=== PATIENT | male | born 1950 | race Caucasian/White ===

== ENCOUNTER 2016-12-07 15:27 | Emergency (ER) | payer OTHER ==
[~2016-12-07] VITALS: Ht 182.9 cm; Wt 90.0 kg
[~2016-12-07 15:27] MED LIST: ENAL5 PO; TRAM50 PO; VASO10TA8 PO
[2016-12-07 15:29] VITALS: BP 176/109; PULSE 112; RESP 14; TEMP 98.1; O2SAT 94
[2016-12-07] MEDS ORDERED: ACETAMINOPHEN 325 MG TAB PO ONE (16:30)
--- NOTE | 2016-12-07 16:38 | PD ---
HPI Chief Complaint: Fall Time Seen by Provider: 16:33 Travel History International Travel<30 days: No Contact w/Intl Traveler<30days: No Traveled to known affect area: No History of Present Illness HPI Patient is a 66-year-old male presented to emergency department for evaluation after fall at approximately 11:30 this morning. Patient states that he was walking and tripped on a pothole, hitting his face on the concrete. He currently reports that he lost consciousness for a few seconds. He presents complaining of a headache, stating his head hurts all over and is throbbing. He reports a backache in his upper back, left anterior chest wall pain, left hand pain. He reports his pain is a 7 out of 10. He is not up-to-date with his tetanus vaccination. Patient denies use of blood thinners or aspirin. He reports hypertension as his only past medical history with the exception of bilateral hip replacements. PFSH Past Medical History Arthritis: Yes Autoimmune Disease: No Blood Disorders: No Heart Rhythm Problems: No Cancer: No High Cholesterol: No Congestive Heart Failure: No Diminished Hearing: No Endocrine: No Glaucoma: No Genitourinary: No Headaches: Yes Hypertension: Yes Implanted Vascular Access Dvce: Yes Musculoskeletal: No Neurologic: Yes Psychiatric: No Reproductive: No Respiratory: No Myocardial Infarction: No PNEUMOCCOCAL Vaccine (Year): 2 Past Surgical History AICD: No Body Medical Devices: EYE IMPLant Eye Surgery: Yes ("LASER" BILATERAL CATARACTS) Genitourinary Surgery: No Joint Replacement: Yes (bilateral HIP) Pacemaker: No Other Surgery: Yes Social History Alcohol Use: Yes (WINE OCCAS) Tobacco Use: No Substance Use: No Allergies-Medications (Allergen,Severity, Reaction): Coded Allergies: No Known Allergies (Verified , 12/07/16) Reported Meds & Prescriptions Reported Meds & Active Scripts Active Ultram (Tramadol HCl) 50 Mg Tab 1 Tab PO Q6 PRN FOR PAIN Reported Vasotec 5 Mg Tab (Enalapril Maleate) 5 Mg Tab 5 Mg PO DAILY Vasotec (Enalapril Maleate) 10 Mg Tab 10 Mg PO HS Review of Systems Except as stated in HPI: all other systems reviewed are Neg Eyes: No: Visual changes HENT: Positive: Headaches, No: Lightheadedness, Neck Stiffness, Neck Pain Cardiovascular: Positive: Chest Pain or Discomfort Respiratory: No: Shortness of Breath Gastrointestinal: No: Nausea, Vomiting, Diarrhea, Abdominal Pain Musculoskeletal: Positive: Myalgias Neurologic: Positive: Headache, No: Weakness, Dizziness, Syncope, Change in Mentation Physical Exam Narrative GENERAL: Well-developed, well-nourished, alert male. SKIN: Warm and dry. HEAD: Contusion to left forehead. Normocephalic. EYES: Pupils equal and round. No scleral icterus. No injection or drainage. ENT: No nasal bleeding or discharge. Mucous membranes pink and moist. NECK: Trachea midline. No JVD. CARDIOVASCULAR: Regular rate and rhythm. No murmur appreciated. RESPIRATORY: No accessory muscle use. Clear to auscultation. Breath sounds equal bilaterally. GASTROINTESTINAL: Abdomen soft, non-tender, nondistended. Hepatic and splenic margins not palpable. MUSCULOSKELETAL: No obvious deformities. No clubbing. No cyanosis. No edema. Tenderness to palpation on left anterior chest wall and right upper back just medial to the scapula. Left hand with contusion to the third MCP. Positive radial pulse, brisk less than 3 second capillary refill. NEUROLOGICAL: Awake and alert. Motor grossly within normal limits. Slurred speech. Left facial droop. PSYCHIATRIC: Appropriate mood and affect; insight and judgment normal. Data Data Last Documented VS Vital Signs Date Time Temp Pulse Resp B/P Pulse Ox O2 Delivery O2 Flow Rate FiO2 12/07/16 16:25 16 12/07/16 15:29 98.1 112 176/109 94 Room Air Orders Prothrombin Time / Inr (Pt) (12/07/16 16:16) Act Partial Throm Time (Ptt) (12/07/16 16:16) Complete Blood Count With Diff (12/07/16 16:16) Comprehensive Metabolic Panel (12/07/16 16:16) Ct Brain W/O Iv Contrast(Rout) (12/07/16 16:16) Chest, Pa & Lat (12/07/16 ) Hand, Complete ([id number]) (12/07/16 ) Ct Facial Bones W/O Iv Cont (12/07/16 ) Acetaminophen (Tylenol) (12/07/16 16:30) Labs Laboratory Tests Test 12/07/16 16:25 White Blood Count 10.8 TH/MM3 Red Blood Count 5.60 MIL/MM3 Hemoglobin 17.3 GM/DL Hematocrit 50.0 % Mean Corpuscular Volume 89.3 FL Mean Corpuscular Hemoglobin 30.9 PG Mean Corpuscular Hemoglobin 34.6 % Concent Red Cell Distribution Width 14.8 % Platelet Count 202 TH/MM3 Mean Platelet Volume 8.4 FL Neutrophils (%) (Auto) 85.4 % Lymphocytes (%) (Auto) 8.0 % Monocytes (%) (Auto) 5.9 % Eosinophils (%) (Auto) 0.2 % Basophils (%) (Auto) 0.5 % Neutrophils # (Auto) 9.3 TH/MM3 Lymphocytes # (Auto) 0.9 TH/MM3 Monocytes # (Auto) 0.6 TH/MM3 Eosinophils # (Auto) 0.0 TH/MM3 Basophils # (Auto) 0.1 TH/MM3 CBC Comment DIFF FINAL Differential Comment Prothrombin Time 11.1 SEC Prothromb Time International 1.0 RATIO Ratio Activated Partial 25.3 SEC Thromboplast Time Sodium Level 137 MEQ/L Potassium Level 4.2 MEQ/L Chloride Level 106 MEQ/L Carbon Dioxide Level 25.0 MEQ/L Anion Gap 6 MEQ/L Blood Urea Nitrogen 12 MG/DL Creatinine 1.01 MG/DL Estimat Glomerular Filtration 74 ML/MIN Rate Random Glucose 118 MG/DL Calcium Level 9.4 MG/DL Total Bilirubin 0.7 MG/DL Aspartate Amino Transf 26 U/L (AST/SGOT) Alanine Aminotransferase 36 U/L (ALT/SGPT) Alkaline Phosphatase 64 U/L Total Protein 7.6 GM/DL Albumin 3.8 GM/DL [facility] Medical Decision Making Medical Screen Exam Complete: Yes Emergency Medical Condition: Yes Interpretation(s) Laboratory Tests Test 12/07/16 16:25 White Blood Count 10.8 TH/MM3 Red Blood Count 5.60 MIL/MM3 Hemoglobin 17.3 GM/DL Hematocrit 50.0 % Mean Corpuscular Volume 89.3 FL Mean Corpuscular Hemoglobin 30.9 PG Mean Corpuscular Hemoglobin 34.6 % Concent Red Cell Distribution Width 14.8 % Platelet Count 202 TH/MM3 Mean Platelet Volume 8.4 FL Neutrophils (%) (Auto) 85.4 % Lymphocytes (%) (Auto) 8.0 % Monocytes (%) (Auto) 5.9 % Eosinophils (%) (Auto) 0.2 % Basophils (%) (Auto) 0.5 % Neutrophils # (Auto) 9.3 TH/MM3 Lymphocytes # (Auto) 0.9 TH/MM3 Monocytes # (Auto) 0.6 TH/MM3 Eosinophils # (Auto) 0.0 TH/MM3 Basophils # (Auto) 0.1 TH/MM3 CBC Comment DIFF FINAL Differential Comment Prothrombin Time 11.1 SEC Prothromb Time International 1.0 RATIO Ratio Activated Partial 25.3 SEC Thromboplast Time Sodium Level 137 MEQ/L Potassium Level 4.2 MEQ/L Chloride Level 106 MEQ/L Carbon Dioxide Level 25.0 MEQ/L Anion Gap 6 MEQ/L Blood Urea Nitrogen 12 MG/DL Creatinine 1.01 MG/DL Estimat Glomerular Filtration 74 ML/MIN Rate Random Glucose 118 MG/DL Calcium Level 9.4 MG/DL Total Bilirubin 0.7 MG/DL Aspartate Amino Transf 26 U/L (AST/SGOT) Alanine Aminotransferase 36 U/L (ALT/SGPT) Alkaline Phosphatase 64 U/L Total Protein 7.6 GM/DL Albumin 3.8 GM/DL Last Impressions Head CT 12/07/16 1616 Signed Impressions: Service Date/Time: Wednesday, December 07, 2016 16:46 - CONCLUSION: Negative for an acute traumatic injury. Robert Banda MD FACR Maxillofacial CT 12/07/16 0000 Signed Impressions: Service Date/Time: Wednesday, December 07, 2016 16:46 - CONCLUSION: Subtle nondisplaced fractures involving the lateral left maxilla. There is an air- fluid level in the left maxillary sinus. Elie Castellon MD Hand X-Ray 12/07/16 0000 Signed Impressions: Service Date/Time: Wednesday, December 07, 2016 16:55 - CONCLUSION: Soft tissue swelling over the dorsum of the hand with no acute fracture or malalignment. Elie Castellon MD Chest X-Ray 12/07/16 0000 Signed Impressions: Service Date/Time: Wednesday, December 07, 2016 16:52 - CONCLUSION: 1. No visualized rib fracture or pneumothorax. 2. Streaky opacity at the lung bases most consistent with atelectasis and or scarring. Elie Castellon MD Vital Signs Date Time Temp Pulse Resp B/P Pulse Ox O2 Delivery O2 Flow Rate FiO2 12/07/16 15:29 98.1 112 14 176/109 94 Room Air Differential Diagnosis Hemorrhage versus contusion versus concussion versus fracture versus sprain versus strain versus other Narrative Course Patient is a 66-year-old male presenting to the emergency department for evaluation of a contusion to his left forehead after he sustained a mechanical fall at approximately 11:30 this morning. On physical examination patient has slightly slurred speech as well as left facial drooping. CT scan, labs, imaging ordered and pending. CT scan of the brain is negative, imaging of the left hand was negative, chest x -ray was negative for acute fractures or pneumothorax. It does show scarring at the bases. CT of the facial bones shows maxillary fracture with air fluid level. Patient transferred to a medical bed for further evaluation management. Alva Solomon Dec 07, 2016 16:38
[2016-12-07 16:43] LABS: AUTOMATED NEUTROPHIL # 9.3 TH/MM3 (1.8-7.7); BASOPHIL # 0.1 TH/MM3 (0-0.2); BASOPHIL % 0.5 % (0.0-2.0); EOSINOPHIL % 0.2 % (0.0-4.0); HEMO FLAGS DIFF FINAL; LYMPHOCYTE # 0.9 TH/MM3 (1.0-4.8); MEAN CELL VOLUME 89.3 FL (80.0-100.0); MEAN CORPUSCULAR HEMOGLOBIN 30.9 PG (27.0-34.0); MEAN CORPUSCULAR HGB CONC 34.6 % (32.0-36.0); MONO % 5.9 % (0.0-8.0); NEUT % 85.4 % (16.0-70.0); PLATELET COUNT 202 TH/MM3 (150-450); RED CELL DISTRIBUTION WIDTH 14.8 % (11.6-17.2); WHITE BLOOD COUNT 10.8 TH/MM3 (4.0-11.0)
[2016-12-07 16:53] LABS: APTT (PATIENT) 25.3 SEC (24.3-30.1); PROTHROMBIN TIME - PATIENT 11.1 SEC (9.8-11.6)
--- NOTE | 2016-12-07 16:55 | RADRPT ---
EXAM DATE/TIME: 12/07/2016 16:46 [facility] COMPARISON: CT BRAIN W/O CONTRAST, August 30, 2009, 16:08. INDICATIONS : Trauma; fall with abrasions. RADIATION DOSE: 45.02 CTDIvol (mGy) MEDICAL HISTORY : Cardiovascular disease. Hypertension. SURGICAL HISTORY : None. ENCOUNTER: Initial ACUITY: 1 day PAIN SCALE: 5/10 LOCATION: cranial TECHNIQUE: Multiple contiguous axial images were obtained of the head. Using automated exposure control and adjustment of the mA and/or kV according to patient size, radiation dose was kept as low as reasonably achievable to obtain optimal diagnostic quality images. FINDINGS: CEREBRUM: The ventricles are normal for age. No evidence of midline shift, mass lesion, hemorrha ge or acute infarction. No extra-axial fluid collections are seen. POSTERIOR FOSSA: The cerebellum and brainstem are intact. The 4th ventricle is midline. The cer ebellopontine angle is unremarkable. EXTRACRANIAL: The visualized portion of the orbits is intact. SKULL: The calvaria is intact. No evidence of skull fracture. CONCLUSION: Negative for an acute traumatic injury. Robert Banda MD FACR on December 07, 2016 at 16:52 Board Certified Radiologist. This report was verified electronically.
--- NOTE | 2016-12-07 16:58 | RADRPT ---
EXAM DATE/TIME: 12/07/2016 16:52 [facility] COMPARISON: No previous studies available for comparison. INDICATIONS : Bilateral rib pain, fell MEDICAL HISTORY : Hypertension. SURGICAL HISTORY : None. ENCOUNTER: Initial ACUITY: 1 day PAIN SCORE: 6/10 LOCATION: Bilateral chest FINDINGS: PA and lateral views of the chest demonstrate the lungs to be symmetrically aerated without evidence of mass, confluent infiltrate or effusion. There is mild streaky opacity at the lung bases. The cardi omediastinal contours are unremarkable. Osseous structures are intact with no definite visualized ri b fracture. CONCLUSION: 1. No visualized rib fracture or pneumothorax. 2. Streaky opacity at the lung bases most consistent with atelectasis and or scarring. Elie Castellon MD on December 07, 2016 at 16:55 Board Certified Radiologist. This report was verified electronically.
--- NOTE | 2016-12-07 16:59 | RADRPT ---
EXAM DATE/TIME: 12/07/2016 16:55 [facility] COMPARISON: No previous studies available for comparison. INDICATIONS : Left posterior hand pain, fell MEDICAL HISTORY : None. SURGICAL HISTORY : None. ENCOUNTER: Initial ACUITY: 1 day PAIN SCORE: 4/10 LOCATION: Left Hand FINDINGS: Three view examination of the left hand demonstrates no acute fracture or malalignment. There is soft tissue swelling over the dorsum of the hand. The carpal bones appear intact. The interphalangeal an d metacarpophalangeal joints are intact with mild osteoarthritic change. Bony mineralization is al l. CONCLUSION: Soft tissue swelling over the dorsum of the hand with no acute fracture or malalignme nt. Elie Castellon MD on December 07, 2016 at 16:56 Board Certified Radiologist. This report was verified electronically.
[2016-12-07 17:05] LABS: ALT (GPT) 36 U/L (12-78); ANION GAP 6 MEQ/L (5-15); BLOOD UREA NITROGEN 12 MG/DL (7-18); CHLORIDE 106 MEQ/L (98-107); GLOMERULAR FILTRATION RATE 74 ML/MIN (>89); POTASSIUM 4.2 MEQ/L (3.5-5.1); SODIUM (NA) 137 MEQ/L (136-145)
--- NOTE | 2016-12-07 17:05 | RADRPT ---
EXAM DATE/TIME: 12/07/2016 16:46 [facility] COMPARISON: No previous studies available for comparison. INDICATIONS : Trauma; fall with abrasions. RADIATION DOSE: 39.40 CTDIvol (mGy) MEDICAL HISTORY : Cardiovascular disease. Hypertension. SURGICAL HISTORY : None. ENCOUNTER: Initial ACUITY: 1 day PAIN SCORE: 5/10 LOCATION: Bilateral facial TECHNIQUE: Volumetric scanning of the facial bones was performed. Using automated exposure control and adjustme nt of the mA and/or kV according to patient size, radiation dose was kept as low as reasonably achiev able to obtain optimal diagnostic quality images. FINDINGS: ORBITS: The orbital and infraorbital osseous structures are intact. The retroconal structures have a normal configuration. No radiopaque foreign bodies are seen. NASAL BONE: The nasal bone and maxillary spine are intact ZYGOMATIC ARCHES: Symmetric without evidence of fracture. SINUSES: Moderate air-fluid level left maxillary sinus. There are subtle nondisplaced fractures involving the lateral left maxilla. NASAL CAVITY: The nasal septum is intact and midline. The lacrimal ducts are intact. SOFT TISSUES: Moderate air-fluid level in left maxillary sinus. INTRACRANIAL: No intracranial air seen. CRIBIFORM PLATE: Grossly intact. CONCLUSION: Subtle nondisplaced fractures involving the lateral left maxilla. There is an air-flu id level in the left maxillary sinus. Elie Castellon MD on December 07, 2016 at 16:57 Board Certified Radiologist. This report was verified electronically.
[2016-12-07 17:08] LABS: ALKALINE PHOSPHATASE 64 U/L (45-117); AST (GOT) 26 U/L (15-37); TOTAL BILIRUBIN ADULT 0.7 MG/DL (0.2-1.0)
[2016-12-07 17:36] VITALS: BP 133/80; PULSE 95; RESP 16; O2SAT 99
[2016-12-07] MEDS ORDERED: NORC5TAB PO (17:43)
[2016-12-07] MEDS ORDERED: AUGM875T PO (17:43)
--- NOTE | 2016-12-07 17:43 | PD ---
Data Data Last Documented VS Vital Signs Date Time Temp Pulse Resp B/P Pulse Ox O2 Delivery O2 Flow Rate FiO2 12/07/16 17:36 95 16 133/80 99 12/07/16 15:29 98.1 Room Air Orders Prothrombin Time / Inr (Pt) (12/07/16 16:16) Act Partial Throm Time (Ptt) (12/07/16 16:16) Complete Blood Count With Diff (12/07/16 16:16) Comprehensive Metabolic Panel (12/07/16 16:16) Ct Brain W/O Iv Contrast(Rout) (12/07/16 16:16) Chest, Pa & Lat (12/07/16 ) Hand, Complete ([id number]) (12/07/16 ) Ct Facial Bones W/O Iv Cont (12/07/16 ) Acetaminophen (Tylenol) (12/07/16 16:30) Acetamin-Hydrocod 325-5 Mg (Amity 5-325 (12/07/16 17:45) Labs Laboratory Tests Test 12/07/16 16:25 White Blood Count 10.8 TH/MM3 Red Blood Count 5.60 MIL/MM3 Hemoglobin 17.3 GM/DL Hematocrit 50.0 % Mean Corpuscular Volume 89.3 FL Mean Corpuscular Hemoglobin 30.9 PG Mean Corpuscular Hemoglobin 34.6 % Concent Red Cell Distribution Width 14.8 % Platelet Count 202 TH/MM3 Mean Platelet Volume 8.4 FL Neutrophils (%) (Auto) 85.4 % Lymphocytes (%) (Auto) 8.0 % Monocytes (%) (Auto) 5.9 % Eosinophils (%) (Auto) 0.2 % Basophils (%) (Auto) 0.5 % Neutrophils # (Auto) 9.3 TH/MM3 Lymphocytes # (Auto) 0.9 TH/MM3 Monocytes # (Auto) 0.6 TH/MM3 Eosinophils # (Auto) 0.0 TH/MM3 Basophils # (Auto) 0.1 TH/MM3 CBC Comment DIFF FINAL Differential Comment Prothrombin Time 11.1 SEC Prothromb Time International 1.0 RATIO Ratio Activated Partial 25.3 SEC Thromboplast Time Sodium Level 137 MEQ/L Potassium Level 4.2 MEQ/L Chloride Level 106 MEQ/L Carbon Dioxide Level 25.0 MEQ/L Anion Gap 6 MEQ/L Blood Urea Nitrogen 12 MG/DL Creatinine 1.01 MG/DL Estimat Glomerular Filtration 74 ML/MIN Rate Random Glucose 118 MG/DL Calcium Level 9.4 MG/DL Total Bilirubin 0.7 MG/DL Aspartate Amino Transf 26 U/L (AST/SGOT) Alanine Aminotransferase 36 U/L (ALT/SGPT) Alkaline Phosphatase 64 U/L Total Protein 7.6 GM/DL Albumin 3.8 GM/DL MDM Supervised Visit with LOIS: Yes Narrative Course I, Dr. Puente, have reviewed the advance practice practioner's documentation and am in agreement, met with the patient face to face, made the diagnosis, and the medical decision making was done by me. *My assessment and Findings: 66-year-old male here with fall from standing, tripping and hitting his face with brief LOC. Left-sided headache, facial pain. No other neck or back pain. Extraocular movements are intact. Reproducible tenderness to palpation along the left inferior orbital margin. Differential includes mechanical fall, skull fracture, ICH, facial fracture. Laboratory workup unremarkable. CT of the brain negative. CT of the face shows left lateral maxillary sinus fracture, nondisplaced. Patient will be discharged home with Augmentin, outpatient maxillofacial follow-up. Diagnosis Primary Impression: Maxillary sinus fracture Qualified Code: S02.401A - Maxillary sinus fracture, closed, initial encounter Additional Impressions: Fall Qualified Code: W19.XXXA - Fall, initial encounter Closed head injury Qualified Code: S09.90XA - Closed head injury, initial encounter Referrals: Cristi Cox DMD call for appointment Additional Instruction: Pain medications as needed. Antibiotics as prescribed. Follow-up with maxillofacial surgeon as discussed. Med/Other Pt SpecificInfo: Prescription(s) given Scripts Hydrocodone-Acetaminophen (Amity)5-325 mg Tab1-2 Tab PO Q6H PRN (PAIN) #20 TAB Ref 0 Prov:Preeti Puente MD 12/07/16 Amoxicillin-Clavulanate (Augmentin)875-125 mg [id number] Mg PO BID 7 Days Ref 0 not for use in CrCl <30 ml/min. Prov:Preeti Puente MD 12/07/16 Disposition: 01 DISCHARGE HOME Condition: Stable Preeti Puente MD Dec 07, 2016 17:43
[2016-12-07] MEDS ORDERED: ACETAMINOPHEN/HYDROcodone 325 MG/5 MG TAB PO ONE (17:45)
[2016-12-07 18:03] VITALS: BP 133/80; TEMP 97.8
[2016-12-07] MEDS ORDERED: ENAL5TAB98 PO (18:08)
== END 2016-12-07 18:17 | disposition home or self-care (01) ==
LOC: NEPE 15:27
DX: S02.40DA Maxillary fracture, left side, initial encounter for closed fracture (principal); S09.90XA Unspecified injury of head, initial encounter; R07.89 Other chest pain; M79.642 Pain in left hand; M54.89 Other dorsalgia; I10 Essential (primary) hypertension; W01.198A Fall on same level from slipping, tripping and stumbling with subsequent striking against other object, initial encounter; Y93.01 Activity, walking, marching and hiking; Y92.410 Unspecified street and highway as the place of occurrence of the external cause
CPT/HCPCS: 70450; 70486; 71020; 73130; 80053; 85025; 85610; 85730

== ENCOUNTER 2017-10-19 12:35 | Emergency (ER) | payer OTHER ==
[~2017-10-19] VITALS: Ht 182.9 cm; Wt 100.2 kg
[~2017-10-19 12:35] MED LIST changes: +AUGM875T PO; -ENAL5 PO; +ENAL5TAB98 PO; +NORC5TAB PO; -TRAM50 PO; -VASO10TA8 PO
[2017-10-19 12:39] VITALS: BP 128/81; PULSE 100; RESP 18; TEMP 97.5; O2SAT 97
[2017-10-19] MEDS ORDERED: CHOLPOW65 PO (13:05)
--- NOTE | 2017-10-19 13:06 | PD ---
HPI Chief Complaint: Respiratory Symptoms Time Seen by Provider: 12:55 Travel History International Travel<30 days: No Contact w/Intl Traveler<30days: No Traveled to known affect area: No History of Present Illness HPI Patient is a 67-year-old male presents emergency department for evaluation of generalized weakness and shortness of breath. The patient states about 10:00 today he was working out at his gym and had just gotten off the exercise bike when suddenly he felt very weak all over and short of breath. He denies any chest pain denies any focalized weakness denies any visual difficulties abdominal pain nausea vomiting diarrhea or fevers. He states he felt just fine on the way to the gym. He states that he just has weakness over his entire body. Onset 10:00, location as above, associated signs symptoms as above, context as above. He is accompanied by his neighbor. The patient is exhibiting some mild slurred speech which may be secondary to a speech impediment. His neighbor states that this is his normal speech pattern. PFSH Past Medical History Arthritis: Yes Autoimmune Disease: No Blood Disorders: No Heart Rhythm Problems: No Cancer: No Cardiovascular Problems: Yes (htn on meds) High Cholesterol: No Congestive Heart Failure: No Diminished Hearing: No Endocrine: No Glaucoma: No Genitourinary: No Headaches: Yes Hypertension: Yes Immune Disorder: Yes Implanted Vascular Access Dvce: Yes Musculoskeletal: No Neurologic: Yes Psychiatric: No Reproductive: No Respiratory: No Myocardial Infarction: No PNEUMOCCOCAL Vaccine (Year): 2 Past Surgical History AICD: No Body Medical Devices: EYE IMPLant Eye Surgery: Yes ("LASER" BILATERAL CATARACTS) Genitourinary Surgery: No Joint Replacement: Yes (bilateral HIP) Pacemaker: No Other Surgery: Yes Social History Alcohol Use: Yes (WINE OCCAS) Tobacco Use: No Substance Use: No Allergies-Medications (Allergen,Severity, Reaction): Coded Allergies: No Known Allergies (Verified Adverse Reaction, Unknown, 10/19/17) Reported Meds & Prescriptions Reported Meds & Active Scripts Active Reported Cholesterol 1 Pow Pow 1 Tab PO DAILY Vasotec (Enalapril Maleate) 5 Mg Tab 5 Mg PO DAILY Review of Systems Except as stated in HPI: all other systems reviewed are Neg Physical Exam Narrative GENERAL: Well-developed well-nourished no obvious distress SKIN: Focused skin assessment warm/patient is having mild sweatiness on his back. Otherwise dry. HEAD: Atraumatic. Normocephalic. EYES: Pupils equal and round. No scleral icterus. No injection or drainage. ENT: No nasal bleeding or discharge. Mucous membranes pink and moist. NECK: Trachea midline. No JVD. CARDIOVASCULAR: Regular rhythm with mild tachycardia. No murmur appreciated. RESPIRATORY: No accessory muscle use. Clear to auscultation. Breath sounds equal bilaterally. GASTROINTESTINAL: Abdomen soft, non-tender, nondistended. Hepatic and splenic margins not palpable. MUSCULOSKELETAL: No obvious deformities. No clubbing. No cyanosis. No edema. NEUROLOGICAL: Awake and alert. Mild slurred speech as above. Otherwise cranial nerves II through XII are grossly intact and nonfocal, 5 out of 5 strength in all 4 extremity's. PSYCHIATRIC: Appropriate mood and affect; insight and judgment normal. Data Data Last Documented VS Vital Signs Date Time Temp Pulse Resp B/P (MAP) Pulse Ox O2 Delivery O2 Flow Rate FiO2 10/19/17 16:14 97 16 140/87 (104) 95 10/19/17 12:39 97.5 Orders Orders Electrocardiogram (10/19/17 13:05) B-Type Natriuretic Peptide (10/19/17 13:05) Complete Blood Count With Diff (10/19/17 13:05) Comprehensive Metabolic Panel (10/19/17 13:05) Magnesium (Mg) (10/19/17 13:05) Prothrombin Time / Inr (Pt) (10/19/17 13:05) Act Partial Throm Time (Ptt) (10/19/17 13:05) Troponin I (10/19/17 13:05) Chest, Single Ap (10/19/17 13:05) Ecg Monitoring (10/19/17 13:05) Iv Access Insert/Monitor (10/19/17 13:05) Oximetry (10/19/17 13:05) Oxygen Administration (10/19/17 13:05) Sodium Chloride 0.9% Flush (Ns Flush) (10/19/17 13:15) Ct Pulmonary Angiogram (10/19/17 13:05) Aspirin Chew (Aspirin Chew) (10/19/17 13:15) Iohexol 350 Inj (Omnipaque 350 Inj) (10/19/17 14:07) Ed Discharge Order (10/19/17 15:31) Labs Laboratory Tests Test 10/19/17 13:10 White Blood Count 9.0 TH/MM3 Red Blood Count 5.43 MIL/MM3 Hemoglobin 15.9 GM/DL Hematocrit 48.9 % Mean Corpuscular Volume 90.0 FL Mean Corpuscular Hemoglobin 29.3 PG Mean Corpuscular Hemoglobin Concent 32.6 % Red Cell Distribution Width 14.0 % Platelet Count 187 TH/MM3 Mean Platelet Volume 8.3 FL Neutrophils (%) (Auto) 78.2 % Lymphocytes (%) (Auto) 8.9 % Monocytes (%) (Auto) 11.6 % Eosinophils (%) (Auto) 0.3 % Basophils (%) (Auto) 1.0 % Neutrophils # (Auto) 7.1 TH/MM3 Lymphocytes # (Auto) 0.8 TH/MM3 Monocytes # (Auto) 1.0 TH/MM3 Eosinophils # (Auto) 0.0 TH/MM3 Basophils # (Auto) 0.1 TH/MM3 CBC Comment DIFF FINAL Differential Comment Prothrombin Time 11.0 SEC Prothromb Time International Ratio 1.1 RATIO Activated Partial Thromboplast Time 24.0 SEC Blood Urea Nitrogen 23 MG/DL Creatinine 1.00 MG/DL Random Glucose 103 MG/DL Total Protein 6.9 GM/DL Albumin 3.5 GM/DL Calcium Level 8.7 MG/DL Magnesium Level 2.1 MG/DL Alkaline Phosphatase 57 U/L Aspartate Amino Transf (AST/SGOT) 24 U/L Alanine Aminotransferase (ALT/SGPT) 30 U/L Total Bilirubin 0.7 MG/DL Sodium Level 138 MEQ/L Potassium Level 4.3 MEQ/L Chloride Level 105 MEQ/L Carbon Dioxide Level 24.4 MEQ/L Anion Gap 9 MEQ/L Estimat Glomerular Filtration Rate 75 ML/MIN Troponin I LESS THAN 0.02 NG/ML B-Type Natriuretic Peptide 24 PG/ML MDM Medical Decision Making Medical Screen Exam Complete: Yes Emergency Medical Condition: Yes Interpretation(s) EKG shows sinus rhythm at a rate of 93, left axis deviation, poor R-wave progression. Pattern consistent with pulmonary disease. No concerning ST segment changes. Intervals within normal limits. Abnormal EKG but nonischemic. Differential Diagnosis Anxiety, PE, shortness of breath, ACS unlikely, ME unlikely, anemia. Narrative Course Patient roomed in emergency department, initial workup including CT PE protocol EKG troponin negative. Patient's symptoms had resolved spontaneously while in the emergency department. On my second revisit the patient's neighbor states to me that she thinks she isgoing on. When I ask her what she states that the patient has been having significant negative interactions with his significant other who is substantially younger than him and they will live together. She thinks that as this anxiety that caused the symptoms today. The patient is unwilling to comment further at this time. I did ask him if he felt threatened by her or if she is stealing from him and he denied. At this time the patient' s stable for discharge. I discussed with him return to ED criteria his safety at home. Diagnosis Primary Impression: SOB (shortness of breath) Additional Impression: Adjustment disorder Patient Instructions: General Instructions, Stress (DC) Disposition: 01 DISCHARGE HOME Condition: Stable Feliberto Jamison MD Oct 19, 2017 13:06
[2017-10-19] MEDS ORDERED: SODIUM CHLORIDE 0.9% FLUSH 10 ML FLUSH IVF PRN (13:15)
[2017-10-19] MEDS ORDERED: ASPIRIN 81 MG CHEW TAB CHEW ONE (13:15)
[2017-10-19 13:21] LABS: AUTOMATED NEUTROPHIL # 7.1 TH/MM3 (1.8-7.7); BASOPHIL # 0.1 TH/MM3 (0-0.2); EOSINOPHIL % 0.3 % (0.0-4.0); HEMATOCRIT 48.9 % (39.0-51.0); HEMOGLOBIN 15.9 GM/DL (13.0-17.0); LYMPH % 8.9 % (9.0-44.0); LYMPHOCYTE # 0.8 TH/MM3 (1.0-4.8); MEAN CORPUSCULAR HEMOGLOBIN 29.3 PG (27.0-34.0); MEAN CORPUSCULAR HGB CONC 32.6 % (32.0-36.0); MEAN PLATELET VOLUME 8.3 FL (7.0-11.0); MONO % 11.6 % (0.0-8.0); NEUT % 78.2 % (16.0-70.0); PLATELET COUNT 187 TH/MM3 (150-450); RED BLOOD COUNT 5.43 MIL/MM3 (4.50-5.90)
[2017-10-19 13:29] LABS: CHLORIDE 105 MEQ/L (98-107); SODIUM (NA) 138 MEQ/L (136-145)
[2017-10-19 13:33] LABS: INTERNATIONAL NORMALIZED RATIO 1.1 RATIO
[2017-10-19 13:34] LABS: CALCIUM 8.7 MG/DL (8.5-10.1)
[2017-10-19 13:35] LABS: ALBUMIN 3.5 GM/DL (3.4-5.0); BICARBONATE 24.4 MEQ/L (21.0-32.0); BLOOD UREA NITROGEN 23 MG/DL (7-18); GLUCOSE,RANDOM 103 MG/DL (74-106); MAGNESIUM 2.1 MG/DL (1.5-2.5)
[2017-10-19 13:38] LABS: ALT (GPT) 30 U/L (12-78); AST (GOT) 24 U/L (15-37); GLOMERULAR FILTRATION RATE 75 ML/MIN (>89)
[2017-10-19 13:39] LABS: TOTAL BILIRUBIN ADULT 0.7 MG/DL (0.2-1.0); TOTAL PROTEIN 6.9 GM/DL (6.4-8.2)
[2017-10-19 13:41] LABS: ALKALINE PHOSPHATASE 57 U/L (45-117)
[2017-10-19 13:43] LABS: TROPONIN I LESS THAN 0.02 NG/ML (0.02-0.05)
[2017-10-19] MEDS ORDERED: IOHEXOL 350 MG/ML 10 ML VIAL (for RAD DIAG) IVCONTRAST ONE (14:07)
--- NOTE | 2017-10-19 14:18 | RADRPT ---
EXAM DATE/TIME: 10/19/2017 13:54 [facility] COMPARISON: No previous studies available for comparison. INDICATIONS : Short of breath. Evaluate for embolism. IV CONTRAST: 75 cc Omnipaque 350 (iohexol) IV RADIATION DOSE: 17.70 CTDIvol (mGy) MEDICAL HISTORY : Hypertension. SURGICAL HISTORY : Orthopedic surgery. ENCOUNTER: Initial ACUITY: 1 day PAIN SCALE: 0/10 LOCATION: chest TECHNIQUE: Volumetric scanning of the chest was performed using a pulmonary embolism protocol MIP images were re constructed. Using automated exposure control and adjustment of the mA and/or kV according to patien t size, radiation dose was kept as low as reasonably achievable to obtain optimal diagnostic quality images. DICOM format image data is available electronically for review and comparison. Follow-up recommendations for detected pulmonary nodules are based at a minimum on nodule size and pa tient risk factors according to Fleischner Society Guidelines. FINDINGS: PULMONARY ARTERIES: No filling defects are seen in the pulmonary arteries through the segmental level. LUNGS: A 6.4 mm semicircular nodule is identified along the right interlobar fissure characteristic of a sma ll lymph node. There are no suspicious pulmonary nodules. Mild subsegmental air space disease is iden tified in the left lower lobe. Lungs are otherwise clear. PLEURAE: There is no pleural thickening or pleural effusion. MEDIASTINUM: There is good visualization of the great vessels of the middle mediastinum. No evidence of mediastin al or hilar adenopathy/mass. MUSCULOSKELETAL: Within normal limits for patient age. MISCELLANEOUS: The visualized upper abdominal organs demonstrate no acute abnormality. CONCLUSION: 1. No evidence of pulmonary embolism. 2. No suspicious nodules identified. 3. Mild subsegmental air space disease left lower lobe. Afshin Soriano MD on October 19, 2017 at 14:11 Board Certified Radiologist. This report was verified electronically.
[2017-10-19 15:05] VITALS: O2SAT 96
--- NOTE | 2017-10-19 15:53 | RADRPT ---
EXAM DATE/TIME: 10/19/2017 13:39 [facility] COMPARISON: CHEST PA & LAT, December 07, 2016, 16:52. EXTERNAL COMPARISON : INDICATIONS : Weakness bilaterally. MEDICAL HISTORY : Hypertension. Cardiovascular disease. SURGICAL HISTORY : None. ENCOUNTER: Initial ACUITY: 2 days PAIN SCORE: 0/10 LOCATION: Bilateral weakness FINDINGS: Lungs are hypoaerated. Mild atelectasis and interstitial prominence is seen in the lung bases. Chest is otherwise stable. There is no evidence of consolidating airspace disease or pleural effusions. The re are no mass densities. CONCLUSION: Mild basal atelectasis No evidence of consolidating airspace disease or significant congestion. Afshin Soriano MD on October 19, 2017 at 15:48 Board Certified Radiologist. This report was verified electronically.
[2017-10-19 16:14] VITALS: BP 140/87
--- NOTE | 2017-10-19 17:32 | EKG ---
Date Performed: 10/19/2017 Time Performed: 13:14:22 PTAGE: 67 years EKG: Sinus rhythm WITH OCCASIONAL ECTOPIC PREMATURE COMPLEXES MARKED LEFT AXIS DEVIATION PATTERN CONSISTENT WITH PULMO NARY DISEASE Since previous tracing, no significant change noted ABNORMAL ECG PREVIOUS TRACING : 01/29/2012 06.30 DOCTOR: Megan Madison Interpretating Date/Time 10/19/2017 17:31:51
== END 2017-10-19 16:19 | disposition home or self-care (01) ==
LOC: PHED 12:35
DX: R06.02 Shortness of breath (principal); R53.1 Weakness; F43.20 Adjustment disorder, unspecified; R94.31 Abnormal electrocardiogram [ECG] [EKG]; R47.81 Slurred speech; M19.90 Unspecified osteoarthritis, unspecified site; I10 Essential (primary) hypertension; Z79.899 Other long term (current) drug therapy
CPT/HCPCS: 71010; 71275; 80053; 83735; 83880; 84484; 85025; 85610; 85730; 93005; 99285; Q9967